=== PATIENT | male | born 1995 | race Caucasian/White ===

== ENCOUNTER 2017-06-21 12:58 | Emergency (ER) | payer SELFPAY | END 2017-06-21 14:27 | disposition left against medical advice (07) | LOC: ER 12:58 | DX: Z53.21 Procedure and treatment not carried out due to patient leaving prior to being seen by health care provider (principal) ==

== ENCOUNTER 2017-06-21 19:39 | Emergency (ER) | payer BC ==
--- NOTE | ~2017-06-21 | ER ---
ADMIT: 06/21/2017 RM/LOC: ER [facility] MR#: [id number] [address] [facility] [address] [place], [place] [id number] BENNIE OAKLEY [address] [address] Emergency Room Report SEX: M AGE: 21 : 1995 DATE: 06/21/2017 ADDENDUM: HISTORY OF PRESENT ILLNESS: This patient comes to the ER because he has had a cough over the last week and has become more short of breath. He is a heavy smoker smoking 3 packs of cigarettes a day sometimes. With a very least, he will smoke 2 packs. He does not have any fevers, just has a cough and sometimes feels short of breath with cough. PHYSICAL EXAMINATION: GENERAL: This is a thin 21-year-old male. VITAL SIGNS: His O2 saturation was 96%, and his respiratory rate was 16. LUNGS: He does have wheezes throughout. He was given a breathing treatment. He felt that really improved his shortness of breath. I wrote a prescription for albuterol inhaler. DIAGNOSES: 1. Bronchitis. 2. Tobacco abuse. PLAN: He needs to quit smoking. Follow up with his primary as needed. Please see my T-sheet. SOLANGE Ly / Kd Hermosillo MD / vaibhav JOB #: [id number] CC: Kd Hermosillo MD, Attending Physician Black Kaur MD, Family Physician
== END 2017-06-21 21:20 | disposition home or self-care (01) ==
LOC: ER 19:39
DX: J40 Bronchitis, not specified as acute or chronic (principal); F17.210 Nicotine dependence, cigarettes, uncomplicated